=== PATIENT | female | born 1990 | race Caucasian/White ===

== ENCOUNTER 2017-07-19 07:08 | Inpatient (IN) | payer BC ==
[~2017-07-19] VITALS: Ht 162.6 cm; Wt 86.6 kg
[2017-07-19] VITALS (17 sets, daily range): BP systolic 100–141; BP diastolic 57–85
[~2017-07-19 07:08] MED LIST: NOHOMEMEDS
[2017-07-19 08:57] LABS: EOSINOPHIL (%) 0.4 % (0-5); IMMATURE GRANULOCYTE (%) 0.4 % (0.0-0.7); INSTRUMENT ABS NEUTROPHIL CT 4.5 K/uL; LYMPHOCYTE COUNT 1.4 K/uL (1.0-2.8); MCH 30.5 PG (29.0-34.0); MCHC 33.3 G/DL (30.0-36.0); MCV 91.4 FL (83-99); MEAN PLAT.VOLUME 10.5 uM^3 (9.5-12.4); MONOCYTE (%) 10.6 % (3-12); MONOCYTE COUNT 0.7 K/uL (0-0.8); NEUTROPHIL COUNT 4.5 K/uL (1.8-6.4); PLATELET COUNT 178 K/uL (156-360); RBC DIS.WIDTH-CV 13.4 % (11.8-14.6); RBC DIS.WIDTH-SD 44.8 % (39-53); RED BLOOD COUNT 3.94 M/uL (3.80-5.20); WHITE BLOOD COUNT 6.7 K/uL (4.1-10.2)
[2017-07-19] MEDS ORDERED: IBUPROFEN800 MG PO (20:46)
[2017-07-20 07:38] VITALS: BP 106/59
[2017-07-20 16:20] VITALS: BP 121/77
[2017-07-20 22:54] VITALS: BP 119/74
== END 2017-07-21 16:15 | disposition home or self-care (01) | DRG 775 ==
LOC: LDRP-OP 07:08 → 2WEST 07:09 → LDRP-OP 19:58 → 2WEST 20:20 → LDRP-OP 08-11 10:33
PROVIDERS: Midwife
DX: O48.0 Post-term pregnancy (principal); Z3A.41 41 weeks gestation of pregnancy; Z37.0 Single live birth; E03.9 Hypothyroidism, unspecified; O99.283 Endocrine, nutritional and metabolic diseases complicating pregnancy, third trimester; O99.284 Endocrine, nutritional and metabolic diseases complicating childbirth; O99.62 Diseases of the digestive system complicating childbirth; E73.9 Lactose intolerance, unspecified
CPT/HCPCS: 85025; J7120